=== PATIENT | male | born 1985 | race Hispanic/Latino ===

== ENCOUNTER 2019-07-22 10:55 | Emergency (ER) | payer SELFPAY ==
[2019-07-22] MEDS ORDERED: KETOROLAC TROMETHAMINE 60 MG/2 ML VIAL ONE (11:28)
[2019-07-22] MEDS ORDERED: DEXAMETHASONE SOD PHOSPHATE 10MG/ML 1ML VIAL ONE (11:28)
[2019-07-22] MEDS ORDERED: LIDOCAINE 5% TOPICAL PATCH TP ONE (11:28)
== END 2019-07-22 12:11 | disposition home or self-care (01) ==
LOC: EDH 10:55
DX: S33.5XXA Sprain of ligaments of lumbar spine, initial encounter (principal); F31.9 Bipolar disorder, unspecified; J45.909 Unspecified asthma, uncomplicated; Z90.49 Acquired absence of other specified parts of digestive tract; Z88.0 Allergy status to penicillin; X50.0XXA Overexertion from strenuous movement or load, initial encounter; Y93.89 Activity, other specified; Y92.89 Other specified places as the place of occurrence of the external cause; Y99.8 Other external cause status
CPT/HCPCS: 96372 ×2; 99284; J1100; J1885

== ENCOUNTER 2019-08-07 09:10 | Emergency (ER) | payer SELFPAY | END 2019-08-07 09:37 | disposition home or self-care (01) | LOC: EDH 09:10 | DX: G89.29 Other chronic pain (principal); M54.5 Low back pain; J45.909 Unspecified asthma, uncomplicated; F31.9 Bipolar disorder, unspecified; E11.9 Type 2 diabetes mellitus without complications; Z90.49 Acquired absence of other specified parts of digestive tract; Z88.0 Allergy status to penicillin | CPT/HCPCS: 99281 ==

== ENCOUNTER 2022-12-30 16:27 | Emergency (ER) | payer OTHER ==
[~2022-12-30] VITALS: Ht 182.9 cm; Wt 68.5 kg
[2022-12-30] MEDS ORDERED: KETOROLAC 60 MG VIAL (30MG/ML) IM ONE (17:30)
[2022-12-30] MEDS ORDERED: HYDROCODONE/ACETAMINOPHEN 5/325 MG TAB PO ONE (17:30)
[2022-12-30] MEDS ORDERED: CLINDAMYCIN 150 MG CAP PO ONE (17:30)
[2022-12-30 17:42] VITALS: BP 113/72
[2022-12-30] MEDS ORDERED: ACET-2079 PO (17:43)
[2022-12-30] MEDS ORDERED: IBUP-2070 PO (17:43)
[2022-12-30] MEDS ORDERED: CLIN-141 PO (17:43)
== END 2022-12-30 18:10 | disposition home or self-care (01) ==
LOC: EDH 16:27
DX: K04.7 Periapical abscess without sinus (principal); Z79.1 Long term (current) use of non-steroidal anti-inflammatories (NSAID); Z79.2 Long term (current) use of antibiotics; Z88.0 Allergy status to penicillin; W06.XXXA Fall from bed, initial encounter; Y93.89 Activity, other specified; Y92.89 Other specified places as the place of occurrence of the external cause; Y99.8 Other external cause status
CPT/HCPCS: 99283; 96372; J1885